=== PATIENT | male | born 1960 | race Hispanic/Latino ===

== ENCOUNTER 2019-11-19 21:59 | Emergency (ER) | payer BC ==
[~2019-11-19] VITALS: Ht 162.6 cm; Wt 76.2 kg
[~2019-11-19 21:59] MED LIST: COLESTIPOL HCL1 GM PO; FLAGYL250 MG PO; LOMOTIL TABLET1 EACH PO; PREVACID15 M1; VALTREX500 MG PO; Z.0.NEXIUM20 MG
[2019-11-19] MEDS ORDERED: ONDANSETRON HCL INJ 2MG/ML 2ML 2 MG/ML VIAL IV STA (23:13)
[2019-11-19] MEDS ORDERED: KETOROLAC TROMETHAMINE 30 MG/ML VIAL IV STA (23:13)
[2019-11-19] MEDS ORDERED: SODIUM CHLORIDE 0.9% 1000ML 1,000 ML IV STA (23:13)
--- NOTE | 2019-11-19 23:17 | Emergency Department Note ---
History of Present Illnes History of Present Illness Chief Complaint: Back Pain History of Present Illness This is a 59 year old male . 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 Any updates have been documented here. Past Medical History Recent Fever: No Clinical Suspicion of Infectio: No New/Unexplained Change in Ment: No Other Medical History: DIVERTIULITIS, KIDNEY STONES Other Surgery: Colon surgery Social History Smoking Cessation: Former smoker Alcohol Use: Social Any Illegal Drug Use: No Other Last Tetanus: UTD Review of Systems Review of Systems Constitutional: Reports no symptoms EENTM: Reports no symptoms Cardiovascular: Reports no symptoms Respiratory: Reports no symptoms Gastrointestinal: Reports nausea Genitourinary: Reports pain (R flank) Musculoskeletal: Reports no symptoms Integumentary: Reports no symptoms Neurological: Reports no symptoms Psychological: Reports no symptoms Endocrine: Reports no symptoms Hematological/Lymphatic: Reports no symptoms Physical Exam Related Data Allergies: Coded Allergies: No Known Allergies (Unverified , 09/30/10) Vital signs reviewed: Yes Physical Exam CONSTITUTIONAL Constitutional: Present well-developed, Present well-nourished HENT HENT: Present normocephalic, Present atraumatic, Present oropharynx clear/moist, Present nose normal HENT L/R: Present left ext ear normal, Present right ext ear normal EYES Eyes: Reports PERRL, Reports conjunctivae normal NECK Neck: Present ROM normal PULMONARY Pulmonary: Present effort normal, Present breath sounds normal CARDIOVASCULAR Cardiovascular: Present regular rhythm, Present heart sounds normal, Present capillary refill normal, Present normal rate GASTROINTESTINAL Abdominal: Present soft, Present tender (RLQ), Present right CVA tenderness GENITOURINARY Genitourinary: Present exam deferred SKIN Skin: Present warm, Present dry MUSCULOSKELETAL Musculoskeletal: Present ROM normal NEUROLOGICAL Neurological: Present alert, Present oriented x 3, Present no gross motor or sensory deficits PSYCHOLOGICAL Psychological: Present mood/affect normal, Present judgement normal Results Laboratory Laboratory Laboratory Tests Test 11/19/19 23:17 White Blood Count 8.52 x10e3/uL (4.8-10.8) Red Blood Count 5.51 x10e6/uL (4.3-5.7) Hemoglobin 15.5 g/dL (14.0-18.0) Hematocrit 46.7 % (38.2-49.6) Mean Corpuscular Volume 84.8 fL (81-99) Mean Corpuscular Hemoglobin 28.1 pg (28-32) Mean Corpuscular Hemoglobin Concent 33.2 g/dL (31-35) Red Cell Distribution Width 13.2 % (11.7-14.4) Platelet Count 243 x10e3/uL (140-360) Neutrophils (%) (Auto) 66.0 % (38.7-80.0) Lymphocytes (%) (Auto) 23.2 % (18.0-39.1) Monocytes (%) (Auto) 8.8 % (4.4-11.3) Eosinophils (%) (Auto) 0.7 % (0.0-6.0) Basophils (%) (Auto) 0.8 % (0.0-1.0) Neutrophils # (Auto) 5.6 (2.1-6.9) Lymphocytes # (Auto) 2.0 (1.0-3.2) Monocytes # (Auto) 0.8 (0.2-0.8) Eosinophils # (Auto) 0.1 (0.0-0.4) Basophils # (Auto) 0.1 (0.0-0.1) Absolute Immature Granulocyte (auto 0.04 x10e3/uL (0-0.1) Urine Color Yellow (YELLOW) Urine Clarity Cloudy (CLEAR) Urine pH 8.5 (5 - 7) Urine Specific Maxwell 1.025 (1.010-1.025) Urine Protein Negative (NEGATIVE) Urine Glucose (UA) Negative (NEGATIVE) Urine Ketones Negative (NEGATIVE) Urine Blood 4+ (NEGATIVE) Urine Nitrite Negative (NEGATIVE) Urine Bilirubin Negative (NEGATIVE) Urine Urobilinogen 0.2 mg/dL (0.2 - 1) Urine Leukocyte Esterase Negative (NEGATIVE) Urine RBC >50 /HPF (0-5) Urine WBC 0-5 /HPF (0-5) Urine Epithelial Cells Few /LPF (NONE) Urine Bacteria Few /HPF (NONE) Sodium Level 140 mmol/L (136-145) Potassium Level 4.0 mmol/L (3.5-5.1) Chloride Level 104 mmol/L (98-107) Carbon Dioxide Level 21 mmol/L (22-29) Anion Gap 19.0 mmol/L (8-16) Blood Urea Nitrogen 14 mg/dL (7-26) Creatinine 1.19 mg/dL (0.72-1.25) Estimat Glomerular Filtration Rate > 60 ML/MIN (60-) BUN/Creatinine Ratio 12 (6-25) Glucose Level 118 mg/dL (74-118) Calcium Level 9.6 mg/dL (8.4-10.2) Total Bilirubin 0.8 mg/dL (0.2-1.2) Aspartate Amino Transf (AST/SGOT) 16 IU/L (5-34) Alanine Aminotransferase (ALT/SGPT) 19 IU/L (0-55) Alkaline Phosphatase 54 IU/L (40-150) Total Protein 7.5 g/dL (6.5-8.1) Albumin 4.0 g/dL (3.5-5.0) Globulin 3.5 g/dL (2.3-3.5) Albumin/Globulin Ratio 1.1 (0.8-2.0) Lab results reviewed: Yes Imaging Imaging results reviewed: Yes Impressions [place] [id number] Patient Name: ARIA GERMAIN JR MR #: [id number] : 1960 Age/Sex: 59/M Req #: [id number] Adm Physician: Ordered by: EDOUARD VILLEDA DO Report #: [id number] Location: ER Room/Bed: __ Procedure: [id number] CT/CT ABDOMEN/PELVIS WO Exam Date: 11/19/19 Exam Time: 2330 REPORT STATUS: Signed EXAM: CT Abdomen and Pelvis WITHOUT contrast INDICATION: Right flank pain COMPARISON: Abdominal CT 07/20/2015. TECHNIQUE: Abdomen and pelvis were scanned utilizing a multidetector helical scanner from the lung base to the pubic symphysis without administration of IV contrast. Absence of intravenous contrast decreases sensitivity for detection of focal lesions and vascular pathology. Coronal and sagittal reformations were obtained. Routine protocol was performed. IV CONTRAST: None ORAL CONTRAST: None COMPLICATIONS: None RADIATION DOSE: Total DLP: 432 mGy*cm Estimated effective dose: (DLP x 0.015 x size factor) mSv CTDIvol has been reviewed. It is below the limits set by the Radiation Protocol Committee (RPC). Dose modulation, iterative reconstruction, and/or weight based adjustment of the mA/kV was utilized to reduce the radiation dose to as low as reasonably achievable. FINDINGS: LINES and TUBES: None. LOWER THORAX: Unremarkable HEPATOBILIARY: No focal hepatic lesions. No biliary ductal dilation. GALLBLADDER: Gallstones. No wall thickening or hydrops. SPLEEN: No splenomegaly. PANCREAS: No focal masses or ductal dilatation. ADRENALS: No adrenal nodules KIDNEYS/URETERS: A 2 mm obstructive calculus at the right ureterovesicular junction with mild upstream right hydroureteronephrosis. Mild right perinephric fat stranding. No cystic or solid mass lesions. No stones. GI TRACT: Extensive colonic diverticuli. Mild wall thickening of the sigmoid colon. No evidence of appendicitis. PELVIC ORGANS/BLADDER: Urinary bladder collapsed. LYMPH NODES: No lymphadenopathy. VESSELS: Vascular calcifications. PERITONEUM / RETROPERITONEUM: No free air or fluid. BONES: Degenerative changes. SOFT TISSUES: There is a fat containing para-umbilical hernia. IMPRESSION: 1. A 2 mm obstructive calculus at the right ureterovesicular junction with mild upstream right hydroureteronephrosis. 2. Extensive colonic diverticulosis. Mild focal wall thickening of the sigmoid colon without surrounding inflammatory changes sequela of diverticulitis although malignancy warrants exclusion. Recommend referral for colonoscopy. 3. Cholelithiasis without evidence of obstructive cholecystitis. Signed by: Pranay Rodríguez DO on 11/20/2019 1:04 AM Dictated By: PRANAY RODRÍGUEZ DO [id number] Transcribed By: JESENIA on 11/20/19103 COPY TO: EDOUARD VILLEDA DO~ Assessment & Plan Medical Decision Making MDM 59 yom with lower abdominal pain. CBC, CMP, UA and CTS ordered to r/o appendicitis, diverticulitis, UTI, kidney stone, perforated viscus, and biliary pathology. Patient to be discharged to home with confirmed 2 mm UVJ stone RIght side. Rx Motrin and flomax Assessment & Plan Final Impression: (1) Right kidney stone Depart Disposition: HOME, SELF-alf Meds Reported Medications Diphenoxylate Hcl/Atropine (LOMOTIL TABLET) 1 Each Tablet, 1 TAB PO Q8H 03/29/16 Metronidazole (FLAGYL) 250 Mg Tablet, 500 MG PO Q8H 03/29/16 Valacyclovir Hcl (VALTREX) 500 Mg Tab, 500 MG PO DAILY, TAB 03/29/16 Colestipol Hcl,Micronized (COLESTIPOL HCL) 1 Gm Tablet, 1 GM PO BID, #30 TAB 03/29/16 Lansoprazole (PREVACID) 15 Mg Tab.rap, DAILY 03/29/16 Esomeprazole Mag Trihydrate (Nexium) 20 Mg Capsule. 09/30/10 EDOUARD VILLEDA DO Nov 19, 2019 23:17
[2019-11-19 23:57] LABS: BILIRUBIN,URINE NEGATIVE (NEGATIVE); CLARITY,URINE CLOUDY (CLEAR); COLOR,URINE YELLOW (YELLOW); KETONES,URINE NEGATIVE (NEGATIVE); LEUKOCYTE ESTERASE ,URINE NEGATIVE (NEGATIVE); NITRITE,URINE NEGATIVE (NEGATIVE); PROTEIN,URINE DIPSTICK NEGATIVE (NEGATIVE); URINE UROBILINOGEN 0.2 mg/dL (0.2 - 1)
[2019-11-19 23:59] LABS: BASOPHILS # (AUTO) 0.1 (0.0-0.1); BASOPHILS % 0.8 % (0.0-1.0); EOSINOPHILS # (AUTO) 0.1 (0.0-0.4); EOSINOPHILS % 0.7 % (0.0-6.0); HEMATOCRIT 46.7 % (38.2-49.6); HEMOGLOBIN 15.5 g/dL (14.0-18.0); LYMPHOCYTES % 23.2 % (18.0-39.1); MEAN CORPUSCULAR HEMOGLOBIN 28.1 pg (28-32); MEAN CORPUSCULAR HGB CONC 33.2 g/dL (31-35); MEAN CORPUSCULAR VOLUME 84.8 fL (81-99); MONOCYTES # (AUTO) 0.8 (0.2-0.8); MONOCYTES % 8.8 % (4.4-11.3); NEUTROPHILS # (AUTO) 5.6 (2.1-6.9); PLATELET COUNT 243 x10e3/uL (140-360); RED BLOOD COUNT 5.51 x10e6/uL (4.3-5.7); RED CELL DISTRIBUTION WIDTH 13.2 % (11.7-14.4)
[2019-11-20 00:01] LABS: ALANINE AMINOTRANSFERASE 19 IU/L (0-55); ALBUMIN/GLOBULIN RATIO 1.1 (0.8-2.0); ALKALINE PHOSPHATASE 54 IU/L (40-150); BLOOD UREA NITROGEN 14 mg/dL (7-26); BUN/CREATININE RATIO 12 (6-25); CALCIUM 9.6 mg/dL (8.4-10.2); CARBON DIOXIDE 21 mmol/L (22-29); CHLORIDE 104 mmol/L (98-107); CREATININE, SERUM 1.19 mg/dL (0.72-1.25); EST GLOMERULAR FILTRATION RATE > 60 ML/MIN (60-); GLUCOSE 118 mg/dL (74-118); SODIUM 140 mmol/L (136-145)
[2019-11-20 00:11] LABS: BACTERIA,URINE FEW /HPF; EPITHELIAL CELLS,URINE FEW /LPF; RBC,URINE >50 /HPF (0-5); WBC,URINE (MAN) 0-5 /HPF (0-5)
--- NOTE | 2019-11-20 01:07 | Diagnostic Imaging Report ---
EXAM: CT Abdomen and Pelvis WITHOUT contrast INDICATION: Right flank pain COMPARISON: Abdominal CT 07/20/2015. TECHNIQUE: Abdomen and pelvis were scanned utilizing a multidetector helical scanner from the lung base to the pubic symphysis without administration of IV contrast. Absence of intravenous contrast decreases sensitivity for detection of focal lesions and vascular pathology. Coronal and sagittal reformations were obtained. Routine protocol was performed. IV CONTRAST: None ORAL CONTRAST: None COMPLICATIONS: None RADIATION DOSE: Total DLP: 432 mGy*cm Estimated effective dose: (DLP x 0.015 x size factor) mSv CTDIvol has been reviewed. It is below the limits set by the Radiation Protocol Committee (RPC). Dose modulation, iterative reconstruction, and/or weight based adjustment of the mA/kV was utilized to reduce the radiation dose to as low as reasonably achievable. FINDINGS: LINES and TUBES: None. LOWER THORAX: Unremarkable HEPATOBILIARY: No focal hepatic lesions. No biliary ductal dilation. GALLBLADDER: Gallstones. No wall thickening or hydrops. SPLEEN: No splenomegaly. PANCREAS: No focal masses or ductal dilatation. ADRENALS: No adrenal nodules KIDNEYS/URETERS: A 2 mm obstructive calculus at the right ureterovesicular junction with mild upstream right hydroureteronephrosis. Mild right perinephric fat stranding. No cystic or solid mass lesions. No stones. GI TRACT: Extensive colonic diverticuli. Mild wall thickening of the sigmoid colon. No evidence of appendicitis. PELVIC ORGANS/BLADDER: Urinary bladder collapsed. LYMPH NODES: No lymphadenopathy. VESSELS: Vascular calcifications. PERITONEUM / RETROPERITONEUM: No free air or fluid. BONES: Degenerative changes. SOFT TISSUES: There is a fat containing para-umbilical hernia. IMPRESSION: 1. A 2 mm obstructive calculus at the right ureterovesicular junction with mild upstream right hydroureteronephrosis. 2. Extensive colonic diverticulosis. Mild focal wall thickening of the sigmoid colon without surrounding inflammatory changes sequela of diverticulitis although malignancy warrants exclusion. Recommend referral for colonoscopy. 3. Cholelithiasis without evidence of obstructive cholecystitis. Signed by: Pranay Rodríguez DO on 11/20/2019 1:04 AM
[2019-11-20 01:34] VITALS: BP 140/85
== END 2019-11-20 01:36 | disposition home or self-care (01) ==
LOC: ER 21:59
DX: R10.31 Right lower quadrant pain (principal); R11.2 Nausea with vomiting, unspecified; N20.0 Calculus of kidney; Z87.19 Personal history of other diseases of the digestive system
CPT/HCPCS: 36415; 74176; 80053; 81001; 85025; 99284; J1885; J2405; J7030

== ENCOUNTER 2021-10-22 08:58 | Emergency (ER) | payer BC ==
[~2021-10-22] VITALS: Ht 162.6 cm; Wt 76.2 kg
[2021-10-22] MEDS ORDERED: ONDANSETRON HCL INJ 2MG/ML 2ML 2 MG/ML VIAL IV STA (09:11)
[2021-10-22] MEDS: SODIUM CHLORIDE FLUSH 10 ML SYR IV PRN ×2 (09:21→09:31)
[2021-10-22 09:23] LABS: BASOPHILS # (AUTO) 0.1 (0.0-0.1); BASOPHILS % 1.6 % (0.0-1.0); EOSINOPHILS # (AUTO) 0.1 (0.0-0.4); EOSINOPHILS % 1.6 % (0.0-6.0); HEMATOCRIT 47.2 % (38.2-49.6); HEMOGLOBIN 15.4 g/dL (14.0-18.0); LYMPHOCYTES # (AUTO) 1.4 (1.0-3.2); LYMPHOCYTES % 25.4 % (18.0-39.1); MEAN CORPUSCULAR HEMOGLOBIN 28.6 pg (28-32); MEAN CORPUSCULAR HGB CONC 32.6 g/dL (31-35); MEAN CORPUSCULAR VOLUME 87.7 fL (81-99); MONOCYTES # (AUTO) 0.5 (0.2-0.8); MONOCYTES % 9.4 % (4.4-11.3); NEUTROPHILS # (AUTO) 3.4 (2.1-6.9); NEUTROPHILS % 61.5 % (38.7-80.0); PLATELET COUNT 219 x10e3/uL (140-360); RED BLOOD COUNT 5.38 x10e6/uL (4.3-5.7); RED CELL DISTRIBUTION WIDTH 13.5 % (11.7-14.4)
[2021-10-22] MEDS ORDERED: OMEPRAZOLE40 MG (09:24)
[2021-10-22] MEDS ORDERED: CLONAZEPAM0.5 MG (09:24)
[2021-10-22] MEDS ORDERED: LOSARTAN POTASS50 MG (09:24)
[2021-10-22] MEDS ORDERED: TRAZODONE HCL100 MG (09:24)
[2021-10-22] MEDS ORDERED: PEPCID20 MG PO (09:25)
[2021-10-22] MEDS ORDERED: TAMSULOSIN (09:25)
[2021-10-22 09:47] LABS: INR 0.85; PROTHROMBIN TIME 12.4 seconds (11.9-14.5)
[2021-10-22 09:48] LABS: PARTIAL THROMBOPLASTIN TIME 25.8 seconds (23.8-35.5)
[2021-10-22 09:57] LABS: CLARITY,URINE CLOUDY (CLEAR); COLOR,URINE BROWN (YELLOW)
[2021-10-22 09:58] LABS: ALBUMIN 3.7 g/dL (3.5-5.0); ALBUMIN/GLOBULIN RATIO 1.1 (0.8-2.0); ANION GAP 12.7 mmol/L (8-16); CALCIUM 8.9 mg/dL (8.4-10.2); CREATININE, SERUM 0.98 mg/dL (0.72-1.25); POTASSIUM 3.7 mmol/L (3.5-5.1)
[2021-10-22 09:59] LABS: LIPASE 15 U/L (8-78)
[2021-10-22 10:02] LABS: LEUKOCYTE ESTERASE ,URINE NEGATIVE (NEGATIVE)
[2021-10-22 10:03] LABS: KETONES,URINE NEGATIVE (NEGATIVE); NITRITE,URINE NEGATIVE (NEGATIVE); PROTEIN,URINE DIPSTICK >=300 (NEGATIVE); URINE UROBILINOGEN 0.2 mg/dL (0.2 - 1)
[2021-10-22 10:09] LABS: BACTERIA,URINE RARE /HPF; EPITHELIAL CELLS,URINE FEW /LPF; RBC,URINE 21-50 /HPF (0-5); WBC,URINE (MAN) 21-50 /HPF (0-5)
[2021-10-22] MEDS ORDERED: ONDANSETRON ODT4 MG PO (10:35)
[2021-10-22] MEDS ORDERED: CEFDINIR300 MG PO (10:35)
[2021-10-22] MEDS ORDERED: ACETAMINOPHEN-1 EAC4 PO (10:37)
[2021-10-22 11:16] VITALS: BP 128/71
== END 2021-10-22 11:21 | disposition home or self-care (01) ==
LOC: ER 09:20
DX: R10.31 Right lower quadrant pain (principal); K80.80 Other cholelithiasis without obstruction; N39.0 Urinary tract infection, site not specified; K43.9 Ventral hernia without obstruction or gangrene; K57.90 Diverticulosis of intestine, part unspecified, without perforation or abscess without bleeding; I10 Essential (primary) hypertension; K76.0 Fatty (change of) liver, not elsewhere classified; Z20.822 Contact with and (suspected) exposure to COVID-19; Z85.46 Personal history of malignant neoplasm of prostate
CPT/HCPCS: 36415; 71045; 74176; 80053; 81001; 83690; 84484; 85025; 85610; 85730; 99284; J2405; U0002

== ENCOUNTER 2024-08-06 18:07 | Emergency (ER) | payer BC ==
[~2024-08-06] VITALS: Ht 157.5 cm; Wt 76.2 kg
[~2024-08-06 18:07] MED LIST changes: +ACETAMINOPHEN-1 EAC4 PO; +CEFDINIR300 MG PO; +CLONAZEPAM0.5 MG; +LOSARTAN POTASS50 MG; +OMEPRAZOLE40 MG; +ONDANSETRON ODT4 MG PO; +PAXLOVID 300-11 EAC1 PO; +PEPCID20 MG PO; +TADALAFIL5 MG PO; +TAMSULOSIN; +TRAZODONE HCL100 MG; +VALACYCLOVIR500 MG PO
[2024-08-06 18:47] VITALS: TEMP 98.2
[2024-08-06] MEDS: SODIUM CHLORIDE 0.9% 1000ML 1,000 ML IV SCH (19:29)
[2024-08-06 19:37] VITALS: PULSE 67; RESP 18
[2024-08-06 19:38] LABS: BASOPHILS # (AUTO) 0.1 (0.0-0.1); BASOPHILS % 0.8 % (0.0-1.0); EOSINOPHILS # (AUTO) 0.1 (0.0-0.4); EOSINOPHILS % 2.2 % (0.0-6.0); HEMATOCRIT 43.4 % (38.2-49.6); HEMOGLOBIN 14.6 g/dL (14.0-18.0); LYMPHOCYTES # (AUTO) 1.5 (1.0-3.2); LYMPHOCYTES % 22.3 % (18.0-39.1); MEAN CORPUSCULAR HEMOGLOBIN 28.8 pg (28-32); MEAN CORPUSCULAR HGB CONC 33.6 g/dL (31-35); MEAN CORPUSCULAR VOLUME 85.6 fL (81-99); MONOCYTES # (AUTO) 0.7 (0.2-0.8); MONOCYTES % 10.4 % (4.4-11.3); NEUTROPHILS # (AUTO) 4.2 (2.1-6.9); NEUTROPHILS % 64.1 % (38.7-80.0); PLATELET COUNT 208 x10e3/uL (140-360); RED BLOOD COUNT 5.07 x10e6/uL (4.3-5.7); RED CELL DISTRIBUTION WIDTH 13.3 % (11.7-14.4); WHITE BLOOD COUNT 6.51 x10e3/uL (4.8-10.8)
[2024-08-06] MEDS: ONDANSETRON HCL INJ 2MG/ML 2ML 2 MG/ML VIAL IV STA (19:54)
[2024-08-06 20:01] LABS: ALBUMIN 3.9 g/dL (3.5-5.0); ALBUMIN/GLOBULIN RATIO 1.3 (0.8-2.0); ANION GAP 13.4 mmol/L (8-16); BILIRUBIN,TOTAL 1.1 mg/dL (0.2-1.2); CALCIUM 8.9 mg/dL (8.4-10.2); CREATININE, SERUM 0.86 mg/dL (0.72-1.25); TOTAL PROTEIN 6.9 g/dL (6.5-8.1)
[2024-08-06 20:06] LABS: POTASSIUM 3.4 mmol/L (3.5-5.1)
[2024-08-06] MEDS ORDERED: IOPAMIDOL 370 MG/ML 100 ML INFUS..BTL INJ ONE (20:11)
[2024-08-06] MEDS ORDERED: DICYCLOMINE HCL20 MG PO (21:30)
[2024-08-06] MEDS ORDERED: ONDANSETRON ODT4 MG SL (21:30)
[2024-08-06 22:13] VITALS: BP 122/77; PULSE 64; RESP 18; TEMP 98.6; O2SAT 98
== END 2024-08-06 22:18 | disposition home or self-care (01) ==
LOC: ER 19:10
DX: R11.2 Nausea with vomiting, unspecified (principal); A08.4 Viral intestinal infection, unspecified; R10.32 Left lower quadrant pain; R42 Dizziness and giddiness; I10 Essential (primary) hypertension; Z85.46 Personal history of malignant neoplasm of prostate; Z87.442 Personal history of urinary calculi; Z87.19 Personal history of other diseases of the digestive system
CPT/HCPCS: 36415; 74177; 80053; 83690; 85025; 99284; J2405; J2470; J7030; Q9967